=== PATIENT | female | born 1990 | race Caucasian/White ===

== ENCOUNTER 2017-07-13 18:19 | Emergency (ER) | payer OTHER ==
[~2017-07-13] VITALS: Ht 177.8 cm; Wt 77.2 kg
[~2017-07-13 18:19] MED LIST: CYMBALTA60 MG PO; ENSKYCE1 EACH PO; MEDROXYPROGESTE10 MG PO; PROMETHAZINE HC25 M1 PO; SUMATRIPTAN SU100 MG PO
[2017-07-13] MEDS ORDERED: ULTRAM50 MG PO (19:33)
[2017-07-13] MEDS ORDERED: MOTRIN600 MG PO (19:33)
[2017-07-13 20:12] VITALS: BP 139/89
== END 2017-07-13 20:13 | disposition home or self-care (01) ==
LOC: EME 18:19
PROC: 2W3RX1Z Immobilization of Left Lower Leg using Splint (ICD-10-PCS; principal; 2017-07-13)
DX: S93.402A Sprain of unspecified ligament of left ankle, initial encounter (principal); W17.89XA Other fall from one level to another, initial encounter; Y92.007 Garden or yard of unspecified non-institutional (private) residence as the place of occurrence of the external cause
CPT/HCPCS: 73610; 99281; 99283